=== PATIENT | female | born 1950 | race Caucasian/White ===

== ENCOUNTER → 2017-12-01 | Emergency (ER) | payer MEDICARE, OTHER ==
[~2017-12-01] VITALS: Ht 170.2 cm; Wt 82.5 kg
[~2017-12-01] MED LIST: ASPIRIN EC81 MG PO; BUPROPION XL150 MG PO; COZAAR100 MG PO; FLAGYL500 MG PO; HYDROCHLOROTH12.5 M1 PO; HYDROCHLOROTH12.5 MG PO; LISINOPRIL20 MG PO; METOPROLOL SUCC50 MG PO; PRADAXA150 MG PO; TOPROL XL100 MG PO; TRAMADOL HCL50 MG PO
--- NOTE | 2017-12-02 11:01 | EKG ---
[facility] [address] [facility] [place] [address] \T\ T wave abnormality, consider inferior ischemia ST \T\ T wave abnormality, consider anterolateral ischemia Abnormal ECG When compared with ECG of 29-SEP-2016 19:00, Atrial fibrillation has replaced Sinus rhythm ST now depressed in Lateral leads T wave inversion more evident in Inferior leads T wave inversion now evident in Anterolateral leads Confirmed by BREN BENAVIDES MD ([id number]) on 12/02/2017 11:01:35 AM Electronically Signed By: BREN BENAVIDES MD 12/02/17 1101 PATIENT NAME: ROGER TRINH Electrocardiogram DATE OF : 46 PHYSICIAN: BREN BENAVIDES MD REPORT #: [id number] REPORT IS CONFIDENTIAL AND NOT TO BE RELEASED WITHOUT AUTHORIZATION
--- NOTE | 2017-12-02 11:02 | EKG ---
[facility] [address] [facility] [place] [address] \T\ T wave abnormality, consider inferior ischemia Abnormal ECG When compared with ECG of 01-DEC-2017 18:30, (Unconfirmed) T wave inversion no longer evident in Anterolateral leads Confirmed by BREN BENAVIDES MD ([id number]) on 12/02/2017 11:02:03 AM Electronically Signed By: BREN BENAVIDES MD 12/02/17 1102 PATIENT NAME: ROGER TRINH LESLI Electrocardiogram DATE OF : 46 PHYSICIAN: BREN BENAVIDES MD REPORT #: [id number] REPORT IS CONFIDENTIAL AND NOT TO BE RELEASED WITHOUT AUTHORIZATION
== END ==
LOC: ED 18:25
DX: R07.9 Chest pain, unspecified (principal); I10 Essential (primary) hypertension; I48.91 Unspecified atrial fibrillation; F17.200 Nicotine dependence, unspecified, uncomplicated; Z88.5 Allergy status to narcotic agent; Z88.6 Allergy status to analgesic agent; Z88.2 Allergy status to sulfonamides; Z79.899 Other long term (current) drug therapy
CPT/HCPCS: 71045; 80053; 84484; 85025; 85379; 85610; 85730; 93005; 93010; 96374; 99284; J1170; J1644

== ENCOUNTER 2021-09-16 08:57 | Day surgery (SDC) | payer MEDICARE, OTHER ==
[~2021-09-16] VITALS: Ht 170.2 cm; Wt 90.9 kg
[2021-09-16] MEDS ORDERED: ATIVAN1 MG PO (09:14)
--- NOTE | 2021-09-16 10:57 | NUR ---
09/16/21 1057 Tashi,Violette 1030 PT ARRIVED TO PACU ON 6L VIA MASK, VSS. PT WAKES PT VERBAL STIMULI AND IS REORIENTED TO PACU. 1039 MD AT BEDSIDE TALKING TO PT. 1043 O2 REMOVED AND PT ROLLED TO BACK AND PASSING GAS OFF AND ON. EDUCATION GIVEN ON TAKING HEART RATE CONTROL MEDICATION. 1050 PLAN OF CARE DISCUSSED.
--- NOTE | 2021-09-16 22:00 | OR ---
[facility] [address] [place], [place] [address] Signed DATE OF OPERATION: 09/16/2021 SURGEON: Jacque Richmond MD PREOPERATIVE DIAGNOSIS: Right-sided abdominal pain and persistent diarrhea. POSTOPERATIVE DIAGNOSIS: Normal-appearing mucosa of right colon and elsewhere except for sessile polyps x2. PROCEDURES: 1. Total colonoscopy to cecum with biopsy of cecum, right colon, transverse colon, sigmoid and rectum. 2. Cold snare polypectomy x2. ANESTHESIA: Intravenous sedation; propofol infusion, Davonte Ellison CRNA INDICATIONS: This 71-year-old white woman is a patient Dr. Cardoso and has complaints of right-sided abdominal pain and diarrhea. She has no blood per rectum. This has been going on for quite some time. She has improved with Imodium. She has not had cholecystectomy in the past. She is chronically anticoagulated with Pradaxa related to atrial fibrillation. She is admitted at this time to undergo colonoscopy to better characterize her current symptoms. She understands the risk of bleeding, infection, and perforation. FINDINGS: The prep was excellent. Complete colonoscopy was undertaken to the cecum without question. She had no evidence of colitis grossly. She had two sessile polyps of the left colon, both excised with cold snare technique. Random biopsies were taken to assess for occult (microscopic) colitis. DESCRIPTION OF PROCEDURE: The patient was brought to the endoscopy suite and placed in a lateral decubitus position, given intravenous sedation with propofol infusional technique with full cardiopulmonary monitoring. Perianal examination showed excoriation related to diarrhea. An Olympus video colonoscope was passed in the rectum and manipulated throughout the colon ultimately intubating the cecum itself. The ileocecal valve was normal as was the cecum proper. Biopsies were taken of the cecum, though it appeared normal. Scope was withdrawn and examination undertaken. Biopsies were taken of the Electronically Signed By: JACQUE RICHMOND MD 09/16/21 0130 PATIENT NAME: ROGER TRINH OPERATIVE REPORT DATE OF : 46 REPORT #: [id number] PHYSICIAN: JACQUE RICHMOND MD PCP: GENESIS CARDOSO MD REPORT IS CONFIDENTIAL AND NOT TO BE RELEASED WITHOUT AUTHORIZATION [facility] [address] [place], [place] [address] Signed right colon, transverse and later the rectum. There were two sessile polyps on the left colon, one at 70 cm, the other at 60 cm, both were excised with cold snare technique. The scope was removed and the patient taken to the recovery room in good condition. CONCLUDING DIAGNOSIS: Uncertain etiology of diarrhea. She has benefitted from Imodium but may benefit from Questran despite not having had cholecystectomy in the past. Additionally, we will recommend Calmoseptine ointment to perianal area for excoriation. We will await pathology reports regarding microscopic colitis possibilities. MD RUMA Epps/GRACE /[id number] cc: Dr. Cardoso Copies: ~ Electronically Signed By: JACQUE RICHMOND MD 09/16/21 2204 PATIENT NAME: ROGER TRINH LESLI OPERATIVE REPORT DATE OF : 46 REPORT #: [id number] PHYSICIAN: JACQUE RICHMOND MD PCP: GENESIS CARDOSO MD REPORT IS CONFIDENTIAL AND NOT TO BE RELEASED WITHOUT AUTHORIZATION
--- NOTE | 2021-09-17 15:43 | PATH ---
[facility] [address] [place], [place] [address] Signed SPECIMEN(S): A CECUM BIOPSY SPECIMEN(S): B ASCENDING/RIGHT COLON BIOPSY SPECIMEN(S): C TRANSVERSE COLON BIOPSY SPECIMEN(S): D COLON POLYP AT 70 CM SPECIMEN(S): E COLON POLYP AT 60 CM SPECIMEN(S): F RECTAL BIOPSY SPECIMEN SOURCE: A. CECUM BIOPSY B. ASCENDING/RIGHT COLON BIOPSY C. TRANSVERSE COLON BIOPSY D. COLON POLYP AT 70 CM E. COLON POLYP AT 60 CM F. RECTAL BIOPSY CLINICAL HISTORY: Colonoscopy. Pre: Chronic diarrhea, history of colon polyp. Post: Polyps x 2. FINAL PATHOLOGIC DIAGNOSIS: A. Colon, cecum, biopsy: - Colonic mucosa with no histopathologic abnormality. - Negative for active, chronic, or microscopic colitis. - Negative for dysplasia or malignancy. B. Colon, ascending, biopsy: - Fragments of colonic mucosa with no histopathologic abnormality. - Negative for active, chronic, or microscopic colitis. - Negative for dysplasia or malignancy. C. Colon, transverse, biopsy: - Fragments of colonic mucosa with no histopathologic abnormality. - Negative for active, chronic, or microscopic colitis. - Negative for dysplasia or malignancy. D. Colon, polyp at 70 cm, polypectomy: - Hyperplastic polyp. - Negative for dysplasia or malignancy. E. Colon, polyp at 60 cm, polypectomy: - Tubular adenoma. - Negative for high-grade dysplasia or malignancy. F. Rectum, biopsy: - Fragment of colorectal mucosa with no histopathologic abnormality. - Negative for active or chronic proctitis. - Negative for dysplasia or malignancy. PATIENT NAME: ROGER TRINH PATHOLOGY DATE OF : 46 REPORT #: [id number] PHYSICIAN: FRANSISCA JAEGER PCP: GENESIS CLAUDIO MD REPORT IS CONFIDENTIAL AND NOT TO BE RELEASED WITHOUT AUTHORIZATION [facility] [address] [place], [place] [address] Signed NAL:cml:[id number] MICROSCOPIC EXAMINATION: Histologic sections of all submitted blocks are examined by light microscopy. These findings, together with the gross examination, support the pathologic diagnosis. GROSS DESCRIPTION: Six specimens are received in six containers, labeled "NH." A. The specimen, labeled "NH, cecum biopsy," is received in formalin and consists of one bear soft tissue fragment that measures 0.3 cm in greatest dimension. The specimen is entirely submitted in cassette (A1). B. The specimen, labeled "NH, ascending colon biopsy," is received in formalin and consists of two bear soft tissue fragments that measure 0.1-0.2 cm in greatest dimension. The specimen is entirely submitted in cassette (B1). C. The specimen, labeled "NH, transverse colon biopsy," is received in formalin and consists of two bear soft tissue fragments that measure 0.2 cm in greatest dimension. The specimen is entirely submitted in cassette (C1). D. The specimen, labeled "NH, colon polyp at 70 cm," is received in formalin and consists of two bear soft tissue fragments that measure 0.1-0.6 cm in greatest dimension. The specimen is entirely submitted in cassette (D1). E. The specimen, labeled "NH, colon polyp at 60 cm," is received in formalin and consists of one bear soft tissue fragment that measures 0.2 cm in greatest dimension. The specimen is entirely submitted in cassette (E1). F. The specimen, labeled "NH, rectal biopsy," is received in formalin and consists of two bear soft tissue fragments that measure 0.2 cm in greatest dimension. The specimen is entirely submitted in cassette (F1). JS (under the direct supervision of a pathologist) The Gross Description was prepared using a voice recognition system. The report was reviewed for accuracy; however, sound-alike word errors, addition and/or deletions may occur. If there is any question about this report, please contact Client Services. PERFORMING LABORATORY: PATIENT NAME: ROGER TRINH PATHOLOGY DATE OF : 46 REPORT #: [id number] PHYSICIAN: FRANSISCA PATHOLOGY PCP: GENESIS CLAUDIO MD REPORT IS CONFIDENTIAL AND NOT TO BE RELEASED WITHOUT AUTHORIZATION [facility] [address] [place], [place] [address] Signed The technical component was performed by [employer], [address] [place] [id number] (Staff Registered Nurse: Alexa Timmons MD; CLIA# [id number]).Professional [facility], [address] [address] (CLIA# [id number]). Diagnostician: Bhavani Evangelista MD Pathologist Electronically Signed 09/17/2021 Copies: ~ PATIENT NAME: ROGER TRINH LESLI PATHOLOGY DATE OF : 46 REPORT #: [id number] PHYSICIAN: FRANSISCA PATHOLOGY PCP: GENESIS CLAUDIO MD REPORT IS CONFIDENTIAL AND NOT TO BE RELEASED WITHOUT AUTHORIZATION
== END 2021-09-16 11:25 | disposition home or self-care (01) ==
LOC: OPS 08:57 → DS 08:57 → OPS 11:00
PROVIDERS: ATTEND Surgery
PROC: 0DBH8ZX Excision of Cecum, Via Natural or Artificial Opening Endoscopic, Diagnostic (ICD-10-PCS; 2021-09-16)
PROC: 0DBG8ZX Excision of Left Large Intestine, Via Natural or Artificial Opening Endoscopic, Diagnostic (ICD-10-PCS; principal; 2021-09-16 11:30)
DX: D12.3 Benign neoplasm of transverse colon (principal); F17.210 Nicotine dependence, cigarettes, uncomplicated; K21.9 Gastro-esophageal reflux disease without esophagitis; I10 Essential (primary) hypertension; E03.9 Hypothyroidism, unspecified; E66.9 Obesity, unspecified; I48.91 Unspecified atrial fibrillation; Z68.32 Body mass index [BMI] 32.0-32.9, adult; Z79.01 Long term (current) use of anticoagulants; Z87.19 Personal history of other diseases of the digestive system; Z86.010 Personal history of colon polyps; Z88.6 Allergy status to analgesic agent; Z88.5 Allergy status to narcotic agent; Z88.8 Allergy status to other drugs, medicaments and biological substances
CPT/HCPCS: J2001; J2704; J7121